=== PATIENT | female | born 1980 | race Caucasian/White ===

== ENCOUNTER 2017-08-26 14:42 | Emergency (ER) | payer OTHER ==
[~2017-08-26] VITALS: Ht 160 cm; Wt 95.3 kg
[2017-08-26] MEDS ORDERED: ATEN100T PO (15:20)
[2017-08-26] MEDS ORDERED: METR500T PO (15:20)
[2017-08-26] MEDS ORDERED: HYDR25TA4 PO (15:20)
[2017-08-26] MEDS ORDERED: IBUPROFEN 800 MG TABLET PO ONE (16:30)
--- NOTE | 2017-08-26 16:58 | NUR ---
ICE PACK TO NECK, MOTRIN ADMIN, PT SIGNED WAIVER.
[2017-08-26] MEDS ORDERED: IBUPROFEN 800 MG TABLET ONE (17:12)
--- NOTE | 2017-08-26 18:57 | NUR ---
MSE COMPLETED, PT D/C'D HOME, ACI/RX X3 GIVEN, PT AMBULATED W/O DIFF/TOOK ALL BELONGINGS.
[2017-08-26 18:59] VITALS: BP 120/78
== END 2017-08-26 19:00 | disposition home or self-care (01) ==
LOC: ER 14:42
DX: S13.4XXA Sprain of ligaments of cervical spine, initial encounter (principal); M54.9 Dorsalgia, unspecified; I10 Essential (primary) hypertension; K58.9 Irritable bowel syndrome, unspecified; V89.2XXA Person injured in unspecified motor-vehicle accident, traffic, initial encounter; Y92.410 Unspecified street and highway as the place of occurrence of the external cause; Y93.89 Activity, other specified; Y99.8 Other external cause status
CPT/HCPCS: 72125; A4663